=== PATIENT | female | born 1955 | race Caucasian/White ===

== ENCOUNTER 2022-08-24 09:42 | Day surgery (SDC) | payer MEDICARE, OTHER ==
[2022-08-23 10:40] VITALS: BMI 22.8
[2022-08-24 12:22] VITALS: RESP 16; TEMP 97.8
[2022-08-24 12:29] VITALS: BP 132/78; PULSE 56
== END 2022-08-24 12:25 | disposition home or self-care (01) ==
LOC: FASU-ENDO 09:42
PROVIDERS: ATTEND Internal Medicine Gastroenterology
PROC: 0DBN8ZX Excision of Sigmoid Colon, Via Natural or Artificial Opening Endoscopic, Diagnostic (ICD-10-PCS; principal; 2022-08-24 11:05)
DX: Z12.11 Encounter for screening for malignant neoplasm of colon (principal); K63.5 Polyp of colon; K64.1 Second degree hemorrhoids; Z86.010 Personal history of colon polyps
CPT/HCPCS: 88305-TC

== ENCOUNTER 2022-10-26 11:31 | Day surgery (SDC) | payer MEDICARE, OTHER ==
[2022-10-19 17:50] VITALS: BMI 23.1
[2022-10-26 12:48] VITALS: TEMP 97.9
[2022-10-26 12:51] VITALS: BP 124/64; PULSE 67; RESP 18
== END 2022-10-26 13:25 | disposition home or self-care (01) ==
LOC: FASU-ENDO 11:31
PROVIDERS: ATTEND Internal Medicine Gastroenterology
PROC: 0DB68ZX Excision of Stomach, Via Natural or Artificial Opening Endoscopic, Diagnostic (ICD-10-PCS; 2022-10-26)
PROC: 0DB48ZX Excision of Esophagogastric Junction, Via Natural or Artificial Opening Endoscopic, Diagnostic (ICD-10-PCS; 2022-10-26)
PROC: 0DB98ZX Excision of Duodenum, Via Natural or Artificial Opening Endoscopic, Diagnostic (ICD-10-PCS; principal; 2022-10-26 12:22)
DX: K29.50 Unspecified chronic gastritis without bleeding (principal); K20.90 Esophagitis, unspecified without bleeding; R10.13 Epigastric pain
CPT/HCPCS: 88305-TC; 88342-TC